=== PATIENT | female | born 2000 | race Asian ===

== ENCOUNTER 2021-12-31 14:42 | Emergency (ER) | payer OTHER, SELFPAY ==
--- NOTE | 2021-12-31 14:49 | ED.URI ---
HPI - URI/Sore Throat General Chief Complaint: Upper Respiratory Infection Stated Complaint: SINUS CONGESTION Time Seen by Provider: 12/31/21 14:52 Source: patient and RN notes reviewed Mode of arrival: ambulatory Limitations: no limitations History of Present Illness HPI Narrative: 21-year-old female presents with concern for one-week history of cough and chest congestion. She reports many week history of sinus congestion, pressure, thick green drainage. She reports she has taken antihistamines without relief, she has had a negative COVID test. MD elicited complaint: cough and nasal congestion Related Data Allergies Allergy/AdvReac Type Severity Reaction Status Date / Time No Known Allergies Allergy Unverified 12/31/21 14:47 Review of Systems Review of Systems: CONSTITUTIONAL: Reports malaise. Denies chills, sweats, or fever. EYES: Denies visual changes, redness, or discharge. ENT: Reports rhinorrhea, congestion, sinus pain. Denies otalgia and sore throat. CARDIOVASCULAR: Denies chest pain, palpitations, or edema. RESPIRATORY: Reports cough and chest congestion. Denies dyspnea. GASTROINTESTINAL: Denies abdominal pain, nausea, vomiting, diarrhea SKIN: Denies rash or itching. MUSCULOSKELETAL: Denies myalgia. NEUROLOGIC: Denies headache. All systems reviewed & are unremarkable except as noted in HPI and below PMFSH Comments At time of signature, agree with nursing past medical, surgical, social and family history. There is no relevant family history pertinent to the presenting complaint Exam Narrative: GENERAL: Well-appearing, well-nourished, and in no acute distress. HEAD: Normocephalic EYES: PERRLA, conjunctivae clear ENT: Nares clear, turbinates edematous and erythematous, clear discharge. Mucous membranes moist. TM pearly davies with dull light reflex bilaterally; no tragal tenderness. Oropharynx not erythematous without lesions. Tonsils not enlarged and without exudate, no drooling, no hoarseness, no trismus, uvula midline. NECK: Supple. No lymphadenopathy CHEST: Clear to auscultation, breath sounds equal. No wheezing, rhonchi, rales, or stridor. No respiratory distress, speaks in full sentences. HEART: Regular rate and rhythm. No murmur heard. SKIN: Warm, dry, no rash. NEURO: Alert and oriented x3. PSYCH: Normal mood and affect Course Course Emergency Course: Patient is aware of diagnosis, understands and agrees to treatment plan. Anticipatory guidance given. Patient agrees to follow-up as directed and is aware of reasons to seek care at the emergency department. Portions of this record may have been created with voice recognition software Level of Care: Express Care Visit Vital Signs Vital signs: Reviewed. MDM - URI/Sore Throat MDM Narrative Medical decision making narrative: Differential diagnosis considered: Evans virus, strep pharyngitis, allergic rhinitis, upper respiratory tract infection, sinusitis, rhinosinusitis, nasopharyngitis. viral pharyngitis, otitis media, otitis externa, pneumonia, bronchitis, viral cough syndrome, viral syndrome, and influenza. Exam findings show no acute concerns or changes; patient is non-toxic appearing and is in no distress. Patient is appropriate for outpatient treatment and follow-up. Lab Data Attestation: I reviewed the patient's lab results. Critical Care Time Critical Care Time Critical Care Time: No Discharge Plan Discharge Clinical Impression: Sinobronchitis Patient Disposition: Home, Self-Care Condition: Stable Instructions: Sinusitis (ED) Additional Instructions: Take medications as prescribed Recommend antihistamine such as Benadryl at night time and Zyrtec or Chelsey during the day Cough syrup may cause drowsiness; avoid driving or take it at night time. Also, recommend symptomatic treatment includes: rest, fluids, and increase humidity of the air at home. Recommend Acetaminophen as directed on the bottle to reduce fever, pain, headache.
[2021-12-31 14:53] VITALS: BP 123/80; PULSE 89; RESP 20; TEMP 36.7; O2SAT 100
== END 2021-12-31 15:06 | disposition home or self-care (01) ==
PROVIDERS: Emergency Provider Nurse Practitioner
DX: J32.9 Chronic sinusitis, unspecified (principal); J40 Bronchitis, not specified as acute or chronic
CPT/HCPCS: 99203; G0463

== ENCOUNTER 2022-07-30 14:18 | Emergency (ER) | payer OTHER, SELFPAY ==
--- NOTE | 2022-07-30 14:22 | ED.URI ---
HPI - URI/Sore Throat General Chief Complaint: Upper Respiratory Infection Stated Complaint: sore throat Time Seen by Provider: 07/30/22 14:34 Source: patient, RN notes reviewed and old records reviewed Mode of arrival: ambulatory Limitations: no limitations History of Present Illness HPI Narrative: 21-year-old female presents to the [facility] with complaints of a sore throat that has progressively getting worse over the last 2-3 days. states that she woke up today and the pain was much worse. Thought it was her allergies because she has been sleeping with the windows open. Denies fevers, chest pain, abdominal pain. Has taken [id number] allergy medication and Sudafed with no relief. Maintaining own secretions. Pain with swallowing but no other issue MD elicited complaint: sore throat Onset (ago): day(s) (2-3) Consistency: progressively worsening Able to tolerate fluids by mouth: Yes Relieving factors: nothing Treatments prior to arrival: cold medicine and other ( Allergy medication) Related Data Allergies Allergy/AdvReac Type Severity Reaction Status Date / Time No Known Allergies Allergy Unverified 12/31/21 14:47 Review of Systems Review of Systems: All systems reviewed & are unremarkable except as noted in HPI and below Constitutional: Constitutional: Reports no additional constitutional complaints Eyes: Eyes: Reports no additional eye complaints ENT: Reports as per HPI and Reports sore throat Cardiovascular: Cardiovascular: Reports no additional cardiovascular complaints, Denies chest pain and Denies dyspnea Respiratory: Respiratory: Reports no additional respiratory complaints, Denies chest congestion, Denies cough and Denies dyspnea Gastrointestinal: Gastrointestinal: Reports no additional gastrointestinal complaints, Denies abdominal pain, Denies nausea and Denies vomiting Musculoskeletal: Musculoskeletal: Reports no additional musculoskeletal complaints Integumentary/Breasts: Skin/Breast: Reports system reviewed and no additional complaints, except as docu Neurologic: Reports system reviewed and no additional complaints, except as documented Psychiatric: Psychiatric: Reports no additional psychiatric complaints Allergic/Immunologic: Allergic/Immunologic: Reports no additional allergic/immunologic complaints [facility] Social History Social History (Updated 07/30/22 @ 14:49 by Chanel Villafana APRN) Gender identity (if verbalized by the patient): Female Comments At the time of my signature, I reviewed and agree with the nursing past medical, surgical, social, and family history. There is no relevant family history pertinent to the patient complaint. Exam Const: General: cooperative, healthy appearing, comfortable, no acute distress, well developed, alert and well nourished Nutritional Appearance: well nourished Orientation/consciousness: patient oriented x3 Limitations: no limitations HENMT: Head: normal to inspection Ears: hearing grossly normal bilaterally, external ears normal, TM's normal bilaterally and EAC's normal Face/Nose/Sinus: Normal external nose present, Normal nares present, Normal nasal mucous membranes and turbinates present and normal facial exam Face and sinus: normal facial exam Mouth: Yes Normal oral and palatal mucosa present, Yes lip normal and Yes moist mucous membranes Throat: tonsils normal, uvula midline, posterior oropharynx abnormal erythema; no cobblstoning, no edema, no exudates and no lacerations, postnasal drainage and no uvular edema Eyes: General: appearance normal, both eyes and all related structures Alignment and Position: alignment normal Periorbital: periorbital findings normal Pupils: Equal, round and reactive pupils present EOM: EOMs intact bilaterally Neck: Neck: normal visual inspection, full ROM, no lymphadenopathy and no meningeal signs Chest: Chest palpation & inspection: normal inspection of the chest Resp: Effort & Inspection: normal
[2022-07-30 14:25] VITALS: BP 118/83; PULSE 91; RESP 16; TEMP 36.3; O2SAT 100
== END 2022-07-30 14:43 | disposition home or self-care (01) ==
PROVIDERS: Emergency Provider Nurse Practitioner
DX: J02.0 Streptococcal pharyngitis (principal)
CPT/HCPCS: 87880; 99213; G0463

== ENCOUNTER 2022-12-24 11:13 | Emergency (ER) | payer OTHER, SELFPAY ==
[2022-12-24 11:23] VITALS: BP 116/89; PULSE 82; RESP 16; TEMP 36.4; O2SAT 100
--- NOTE | 2022-12-24 11:40 | ED.URI ---
HPI - URI/Sore Throat General Chief Complaint: Upper Respiratory Infection Stated Complaint: STREP THROAT Source: patient and RN notes reviewed History of Present Illness HPI Narrative: 22 yo F presents to urgent care with complaints of an increased sore throat. Pt was seen at [facility] care on 12/22/22 and dx with strep throat. Pt has been taking 2 days of amoxicillin with no improvement and states her throat looks worse and her pain is getting worse. Pt reports chills at home and a fever of 102 F last night. Denies any other complaints. Pt has been taking ibuprofen and Tylenol at home. Related Data Allergies Allergy/AdvReac Type Severity Reaction Status Date / Time No Known Allergies Allergy Verified 12/24/22 11:32 Review of Systems Review of Systems: CONSTITUTIONAL: fevers and chills EYES: Denies visual changes, redness, or discharge. ENT: sore throat CARDIOVASCULAR: Denies chest pain, palpitations, or edema. RESPIRATORY: Denies cough or dyspnea. GASTROINTESTINAL: Denies abdominal pain, nausea, vomiting, or diarrhea. GENITOURINARY: Denies dysuria or hematuria. SKIN: Denies rash or itching. MUSCULOSKELETAL: Denies back pain, joint pain, or myalgia. NEUROLOGIC: Denies headache, numbness, or weakness. Pertinent positives per HPI. [facility], [facility] Social History Social History (Updated 07/30/22 @ 14:49 by Chanel Villafana APRN) Gender identity (if verbalized by the patient): Female Comments At the time of my signature, I reviewed and agree with the nursing past medical, surgical, social, and family history. There is no relevant family history pertinent to the patient complaint. Exam Narrative: GENERAL: This is a well-nourished, well-developed patient, in no apparent distress. HEAD: normocephalic, atraumatic. EYES: Sclera clear/white. Vision is grossly intact. EARS: External ears normal, auditory canals clear and without drainage. Hearing grossly intact. NOSE: External nose normal with no obvious nasal discharge, nares without redness, no rhinorrhea. THROAT: Mucous membranes moist, posterior pharynx erythremic with white lesions to posterior pharynx and bilateral tonsils. Tonsils are 2+ bilaterally. NECK: Neck supple, non-tender without lymphadenopathy, masses or thyromegaly. CARDIOVASCULAR: Regular rate and rhythm without murmurs, gallops, or rubs. RESPIRATORY: Clear to auscultation. Breath sounds equal bilaterally. No wheezes, rales, or rhonchi. GASTROINTESTINAL: Abdomen soft, non-tender, nondistended. Bowel sounds are active. No hepato-splenomegaly, or palpable masses. No guarding. SKIN: warm, intact with no suspicious lesions or rash, good texture and turgor. NEURO: awake, alert, and oriented to person, place and time. There were no obvious focal neurologic abnormalities. Course Course Level of Care: Express Care Visit Vital Signs Vital signs: Vital Signs Temperature 97.6 F 12/24/22 11:23 Pulse Rate 82 12/24/22 11:23 Respiratory Rate 16 12/24/22 11:23 Blood Pressure 116/89 12/24/22 11:23 Pulse Oximetry 100 12/24/22 11:23 Temperature 97.6 F 12/24/22 11:23 Pulse Rate 82 12/24/22 11:23 Respiratory Rate 16 12/24/22 11:23 Blood Pressure 116/89 12/24/22 11:23 Pulse Oximetry 100 12/24/22 11:23 reviewed MDM - URI/Sore Throat MDM Narrative Medical decision making narrative: We swabbed your throat for a specific virus. If your results come back and it is positive, we will call you and prescribe you a new medication. In the meantime, finish the Amoxicillin/clav prescription. Get plenty of fluids and vitamin C. If your symptoms worsen, go to the ER. Differential Diagnosis Differential diagnosis: Likely upper respiratory infection, viral infection and pharyngitis Critical Care Time Critical Care Time Critical Care Time: No Discharge Plan Discharge Clinical Impression: Pharyngitis Qualifiers: Pharyngitis/tonsillitis etiology: streptococcus Qualified Code
== END 2022-12-24 11:50 | disposition home or self-care (01) ==
PROVIDERS: Emergency Provider Nurse Practitioner Family
DX: J02.0 Streptococcal pharyngitis (principal)
CPT/HCPCS: 87255; 99213; G0463

== ENCOUNTER 2023-07-13 13:42 | Outpatient (CLI) | payer OTHER, SELFPAY ==
[2023-07-13 18:11] LABS: Hemoglobin 14.2 g/dL (12.0-15.0); Mean Corpuscular Hemoglobin 28.3 pg (26-34); Mean Corpuscular Volume 85.7 fl (80-100); Mean Platelet Volume 9.9 fl (7.4-10.4); Platelet Count Result 350 k/mm3 (150-375); Red Blood Count 5.02 M/mm3 (4.2-5.4); Red Cell Distribution Width 12.7 % (11.5-14.5); White Blood Count 6.2 K/mm3 (4.5-10.0)
[2023-07-13 18:46] LABS: Alanine Aminotransferase 15 U/L (6-35); Albumin Level 4.4 g/dL (3.5-5.1); Alkaline Phosphatase 61 U/L (38-126); Anion Gap 8 mmol/L (4-12); Aspartate Amino Transferase 33 U/L (14-36); Bilirubin,Total 0.6 mg/dL (0.2-1.3); Blood Urea Nitrogen 14 mg/dL (7-17); Carbon Dioxide 27 mmol/L (22-30); Chloride 105 mmol/L (98-107); Cholesterol 148 mg/dL (0-200); Estimated Glomerular Filt Rate > 60; Glucose 93 mg/dL (65-110); HDL Direct 33 mg/dL; Potassium 4.2 mmol/L (3.4-5.0); Sodium 140 mmol/L (137-145); Triglycerides 191 mg/dL (<150)
[2023-07-13 18:57] LABS: LDL Cholesterol Direct 93 mg/dL
== END 2023-07-13 13:43 | disposition home or self-care (01) ==
LOC: ANHGOSHLAB 13:43
PROVIDERS: PCP Family Medicine; Visit Provider Family Medicine
DX: E66.9 Obesity, unspecified (principal); Z79.899 Other long term (current) drug therapy; T78.40XA Allergy, unspecified, initial encounter
CPT/HCPCS: 36415; 80053; 80061; 84443; 85027

== ENCOUNTER 2023-09-28 08:19 | Outpatient (CLI) | payer OTHER, SELFPAY ==
[2023-09-28 12:56] LABS: Basophils Percent Auto 0.4 % (0.2-1.2); Eosinophils Percent Auto 0.6 % (0-4.4); Hematocrit 43.6 % (37.0-47.0); Hemoglobin 14.2 g/dL (12.0-15.0); Immature Granulocyte Absolute 0.02 K/mm3 (0.00-0.031); Immature Granulocyte Percent A 0.4 % (0-0.5); Lymphocytes Absolute Auto 1.76 K/mm3 (0.9-3.2); Lymphocytes Percent Auto 34.9 % (18.3-44.2); Mean Corpuscular HGB Conc 32.6 g/dl (32-36); Mean Corpuscular Hemoglobin 27.7 pg (26-34); Mean Platelet Volume 9.8 fl (7.4-10.4); Monocytes Absolute Auto 0.5 K/mm3 (0.1-0.6); Monocytes Percent Auto 9.5 % (2.6-8.5); Neutrophils Absolute Auto 2.7 K/mm3 (1.3-6.7); Neutrophils Percent Auto 54.2 % (45.5-73.1); Platelet Count Result 314 k/mm3 (150-375); Red Blood Count 5.13 M/mm3 (4.2-5.4); Red Cell Distribution Width 12.2 % (11.5-14.5)
[2023-09-28 13:14] LABS: Alanine Aminotransferase 48 U/L (6-35); Albumin Level 4.8 g/dL (3.5-5.1); Alkaline Phosphatase 69 U/L (38-126); Anion Gap 11 mmol/L (4-12); Aspartate Amino Transferase 90 U/L (14-36); Bilirubin,Total 0.9 mg/dL (0.2-1.3); Blood Urea Nitrogen 12 mg/dL (7-17); Calcium 9.4 mg/dL (8.4-10.2); Carbon Dioxide 25 mmol/L (22-30); Chloride 102 mmol/L (98-107); Estimated Glomerular Filt Rate > 60; Glucose 101 mg/dL (65-110); Potassium 3.8 mmol/L (3.4-5.0); Sodium 138 mmol/L (137-145)
[2023-09-28 14:30] LABS: Iron 105 ug/dL (37-170)
[2023-09-28 14:42] LABS: Percent Iron Saturation 25 % (20-50)
[2023-09-30 08:39] LABS: DHEA-Sulfate 246 mcg/dL (14-349); FSH 5.8 mIU/mL; Prolactin 14.6 ng/mL
[2023-10-04 09:52] LABS: Testosterone Free 4.7 pg/mL (0.1-6.4); Testosterone Total 20 ng/dL (2-45)
[2023-10-09 23:34] LABS: Estradiol, Ultrasensitive 18 pg/mL
== END 2023-09-28 08:20 | disposition home or self-care (01) ==
LOC: ANHGOSHLAB 08:20
PROVIDERS: PCP Family Medicine; Visit Provider Obstetrics & Gynecology
DX: N93.9 Abnormal uterine and vaginal bleeding, unspecified (principal)
CPT/HCPCS: 36415; 80053; 82627; 82670; 82728; 83001; 83498; 83540; 83550; 84146; 84402; 84403; 84443; 85025

== ENCOUNTER 2024-06-23 18:33 | Emergency (ER) | payer OTHER, SELFPAY ==
--- OUTSIDE RECORDS SUMMARY | 2024-06-23 18:37 | XMS_ITS | Clinical Summary ---
Author Organization [facility] [employer] Address [address] [place] [address] Care Team Providers Care Property Clerk Name Role Phone Camron León MD Primary Care Provider [phone] Source Comments [employer],non-owned Affiliates and Associated Physician Practices is amultiple site organization consisting of ambulatory clinics and hospital sitesin [place], [place], [place] and [place]. This disclosure is being madepursuant to the Care Everywhere program and may not contain all information available regarding this patient. Last updated 17.BO.LT Allergies No known active allergies Medications * Be aware that medications may not be up to date on this document. Alwaysverify current medications with the patient. No known medications Social History Tobacco Use Types Packs/Day Years Used Date Smoking Tobacco: Never Comments Unknown Sex and Gender Information Value Date Recorded Sex Assigned at Not on file Legal Sex Female 11:59 AM CLINICAL IMPLEMENTATION SPECIALIST Gender Identity Not on file Sexual Orientation Not on file Last Filed Vital Signs Vital Sign Reading Time Taken Comments Blood Pressure 112/72 11/04/2018 10:01 AM CDT Pulse 74 11/04/2018 10:01 AM CDT Temperature 37 C (98.6 F) 11/04/2018 10:01 AM CDT Respiratory Rate 16 03/16/2016 2:44 PM CLINICAL IMPLEMENTATION SPECIALIST Oxygen Saturation 99% 03/16/2016 2:44 PM CLINICAL IMPLEMENTATION SPECIALIST Inhaled Oxygen Concentration - - Weight 84.8 kg (187 lb) 11/04/2018 10:01 AM CDT Height 161.9 cm (5' 3.75 ) 03/16/2016 2:44 PM CS T Body Mass Index - - Plan of Treatment Health Maintenance Due Date Last Done Comments HIV SCREENING 11/15/2015 HPV VACCINE (1 - 3-dose series) 11/15/2015 CHLAMYDIA/GONORRHEA SCREENING 2016 MENINGOCOCCAL (Group B) VACC INE SHARED DECISION-MAKING (1 of 2 - Standard) 2016 HEPATITIS C SCREENING 11/10/2018 DTAP/TDAP/TD VACCINES (1 - Tdap) 11/15/2019 HEPATITIS B VACCINE (1 of 3 - 19+ 3-dose series) 11/15/2019 COVID-19 VACCINE (1 - 2023-2 5 season) 2023 DEPRESSION SCREENING 02/21/2024 INFLUENZA VACCINE (Season Ended) 2024 ZOSTER VACCINE (1 of 2) 2050 HIB VACCINE Aged Out No longer eligi ble based on patient's age to complete this topic MENINGOCOCCAL GROUPS A/C/Y/W VACCINE Aged Out No longer eligible b ased on patient's age to complete this topic PNEUMOCOCCAL VACCINE Aged Out No long er eligible based on patient's age to complete this topic Insurance [facility] Care Teams Property Clerk Relationship Specialty Start Date End Date Camron León MD [address] [place] [id number] PCP - General Family Medicine 03/16/16
--- OUTSIDE RECORDS SUMMARY | 2024-06-23 18:37 | XMS_ITS | Referral Summary ---
Author Organization [facility] [address] [facility] Address [address] [place] [address] Care Team Providers Care Baseball Glove Shaper Name Role Phone No, Physician Primary Care Provider [phone] Allergies No known active allergies Medications No known medications Active Problems No known active problems Social History Tobacco Use Types Packs/Day Years Used Date Smoking Tobacco: Never Assessed Personal Safety Answer Date Recorded Getting School Help Needed Not on file 04/23 Comments Unknown Sex and Gender Information Value Date Recorded Sex Assigned at Not on file Legal Sex Female 11:49 AM CDT Gender Identity Not on file Sexual Orientation Not on file Last Filed Vital Signs Vital Sign Reading Time Taken Comments Blood Pressure 110/68 12/22/2022 12:09 PM CDT Pulse 89 12/22/2022 12:09 PM CDT Temperature 37.9 C (100.2 F) 12/22/2022 12:09 PM CDT Respiratory Rate 20 12/22/2022 12:09 PM CDT Oxygen Saturation 98% 12/22/2022 12:09 PM CDT Inhaled Oxygen Concentration - - Weight 74.8 kg (165 lb) 12/22/2022 12:09 PM CDT Height 162.6 cm (5' 4 ) 12/22/2022 12:09 PM CDT Body Mass Index 28.32 12/22/2022 12:09 PM CDT Plan of Treatment Not on file Insurance [employer] [facility] HMO Care Teams Baseball Glove Shaper Relationship Specialty Start Date End Date No, Physician PCP - General 12/22/22
--- OUTSIDE RECORDS SUMMARY | 2024-06-23 18:37 | XMS_ITS | Clinical Summary ---
Author Organization [facility] [place] [address] [facility] Address [address] [place] [address] Care Team Providers Care Missile Tracking Technician Name Role Phone No, Physician Primary Care Provider [phone] Allergies No known active allergies Medications No [...] 12/22/2022 12:09 PM CDT Plan of Treatment Health Maintenance Due Date Last Done Comments Cervical Cancer Screening 2000 Depression Screening 2000 Hepatitis C Screening 2000 HPV Vaccines (1 - 3-dose series) 11/15/2015 Meningococcal B Vaccine (1 of 2 - Standard) 2016 Regular Well Visit/Exam 18-64 2018 Covid-19 Vaccine ( season) 2023 11/25/2020, 05/09/2020, 04/18/2020 Influenza Vaccine (#1) 2023 12/07/2019 DTaP/Tdap/Td Vaccine (7 - Td or Tdap) 03/12/2028 03/12/2018, 10/11/2006, 08/09/2002, Additional history exists Varicella Vaccines Completed 11/05/2015, 11/30/2001 Hepatitis B Screening Completed 06/28/2022 , 05/10/2002, 11/30/2001, Additional history exists Pneumococcal vaccine <65 Aged Out No longer eligible based on patient's age to complete this topic [place] [address] [address] [place] [address] HMO Care Teams Missile Tracking Technician Relationship Specialty Start Date End Date No, Physician PCP - General 12/22/22
[2024-06-23 18:38] VITALS: BP 128/85; PULSE 87; RESP 15; TEMP 36.8; O2SAT 100
--- NOTE | 2024-06-23 19:02 | ED_ITS ---
HPI - General Adult General Chief complaint: Skin/Abscess/Foreign Body Stated complaint: skin concern on back Time Seen by Provider: 06/23/24 18:48 History of Present Illness HPI narrative: Patient is a 23-year-old female who presents ER with rash to the mid/low back. Her significant other recognized it yesterday. It is pattern in a circular in linear manner the banding out in each direction. It is not dermatomal. No pruritus. No drainage. No fevers or chills or sweats. No known trauma to the area or possible cause of irritation. Related Data Home Medications ?Medication ?Instructions ?Recorded ?Confirmed ?Last Taken ?Type levonorgestrel (Mirena) 1 device intrauterine ONCE 10/25/23 11/01/23 Unknown History Allergies Allergy/AdvReac Type Severity Reaction Status Date / Time No Known Allergies Allergy Verified 06/23/24 18:41 Review of Systems Review of Systems: All systems reviewed & are unremarkable except as noted in HPI and below Constitutional: Constitutional: Reports no additional constitutional complaints Cardiovascular: Cardiovascular: Reports no additional cardiovascular complaints Respiratory: Respiratory: Reports no additional respiratory complaints Integumentary/Breasts: Skin/Breast: Reports system reviewed and no additional complaints, except as docu Neurologic: Reports system reviewed and no additional complaints, except as documented [facility] [place] Surgical History Surgical History (Updated 11/01/23 @ 09:27 by Nathalia Matamoros MA) H/O gynecological procedure 02/2020 Nexplanon insertion 11/01/23 Nexplanon removal 10/25/23 Mirena IUD insertion [place] teeth extracted Social History Social History (Updated 09/21/23 @ 14:28 by Nathalia Matamoros MA) Smoking status: Current every day smoker Tobacco type: e-cigarettes/vaping Alcohol intake: current Alcohol use details: rarely Substance use: current Substance use type: marijuana Other substance usage details: socially Do You Feel Safe in your Home?: Yes Lack of Transportation: No Lack of Food: Never True Current Housing: I Have Housing Concerned About Future Housing: No Difficulty Paying Gas/Electric Bills: No Difficulty Paying for Meds: No Currently Unemployed: No Education: High School Diploma/GED Difficulty w/ Childcare or Family Care: No Living arrangements: with friend(s) Occupation/Education: occupation 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 HEAD: Normocephalic, atraumatic. ENT: Mucous membranes moist. NECK: Supple. Achy left neck. EXTREMITIES: Normal range of motion. No edema. SKIN: Warm, dry. None blanching rash mid/low back midline fanning out words laterally. No vesicles or pustules. It is not raised. No cellulitis. Circular but also linear at the same time. NEURO: No focal deficits. Alert and oriented x3. PSYCH: Normal mood and affect. Course Course Emergency Course: Not felt to be infectious. Likely related to some pressure/trauma that she is unaware of. Vital Signs Vital signs: Vital Signs Temperature 98.3 F 06/23/24 18:38 Pulse Rate 87 06/23/24 18:38 Respiratory Rate 15 06/23/24 18:38 Blood Pressure 128/85 06/23/24 18:38 Pulse Oximetry 100 06/23/24 18:38 Oxygen Delivery Room Air 06/23/24 18:38 Temperature 98.3 F 06/23/24 18:38 Pulse Rate 87 06/23/24 18:38 Respiratory Rate 15 06/23/24 18:38 Blood Pressure 128/85 06/23/24 18:38 Pulse Oximetry 100 06/23/24 18:38 Oxygen Delivery Room Air 06/23/24 18:38 Medical Decision Making Vital Signs Vital Signs: Vital Signs Temperature 98.3 F 06/23/24 18:38 Pulse Rate 87 06/23/24 18:38 Respiratory Rate 15 06/23/24 18:38 Blood Pressure 128/85 06/23/24 18:38 Pulse Oximetry 100 06/23/24 18:38 Oxygen Delivery Room Air 06/23/24 18:38 Temperature 98.3 F 06/23/24 18:38 Pulse Rate 87 06/23/24 18:38 Respiratory Rate 15 06/23/24 18:38 Blood Pressure 128/85 06/23/24 18:38 Pulse Oximetry 100 06/23/24 18:38 Oxygen Delivery Room Air 06/23/24 18:38 Discharge Plan Discharge Clinical Impression: Rash and nonspecific skin eruption Patient Disposition: Home Condition: Stable Instructions: Acute Rash (ED) Additional Instructions: Your skin rashes felt likely to be some sort pressure injury causing superficial bruising. It does not appear infectious. Return to the ER if you have additional concerns. Patient Language: Yi Prescriptions: No Action Mirena 21 mcg/24 hr (8 yrs) 52 mg intrauterine device 1 device intrauterine ONCE Rx Instructions: as a single dose Follow-up/Referrals: Dora Blanchard DO [Primary Care Provider] - 1 Week
--- OUTSIDE RECORDS SUMMARY | 2024-06-23 19:03 | XMS_ITS | Referral Summary ---
Author Organization [facility] [address] [facility] Address [address] [place] [address] Care Team Providers Care Chronometer Repairer Name Role Phone No, Physician Primary Care Provider [phone] Allergies No known active allergies Medications No [...] of Treatment Not on file Insurance [employer] [facility] HMO Care Teams Chronometer Repairer Relationship Specialty Start Date End Date No, Physician PCP - General 12/22/22
--- OUTSIDE RECORDS SUMMARY | 2024-06-23 19:03 | XMS_ITS | Clinical Summary ---
Author Organization [facility] Address [address] [place] [address] Care Team Providers Care Honey Processor Name Role Phone Camron León MD Primary Care Provider [phone] Source Comments [employer] [facility],non-owned Affiliates and Associated Physician Practices is amultiple site organization consisting of ambulatory clinics and hospital sitesin [place], [place], [place] and [place]. This disclosure is being madepursuant to the Care Everywhere program and may not contain all information available regarding this patient. Last updated [email or web address] Allergies No known active allergies Medications * Be aware that medications may not be up to date on this document. Alwaysverify current medications with the patient. No known medications Social History Tobacco Use Types Packs/Day Years Used Date Smoking Tobacco: Never Comments Unknown Sex and Gender Information Value Date Recorded Sex Assigned at Not on file Legal Sex Female 11:59 AM CLAM DIGGER Gender Identity Not on file Sexual Orientation Not on file Last Filed Vital Signs Vital Sign Reading Time Taken Comments Blood Pressure 112/72 11/04/2018 10:01 AM CDT Pulse 74 11/04/2018 10:01 AM CDT Temperature 37 C (98.6 F) 11/04/2018 10:01 AM CDT Respiratory Rate 16 03/16/2016 2:44 PM CLAM DIGGER Oxygen Saturation 99% 03/16/2016 2:44 PM CLAM DIGGER Inhaled Oxygen Concentration - - Weight 84.8 [...] patient's age to complete this topic Insurance [facility] [place] [address] Care Teams Honey Processor Relationship Specialty Start Date End Date Camron León MD [address] [place] [address] PCP - General Family Medicine 03/16/16
--- OUTSIDE RECORDS SUMMARY | 2024-06-23 19:03 | XMS_ITS | Clinical Summary ---
Author Organization [facility] [address] [facility] Address [address] [place] [address] Care Team Providers Care Agriculture Extension Specialist Name Role Phone No, Physician Primary Care Provider [phone] Allergies No known active allergies Medications No [...] patient's age to complete this topic [place] [place] [address] HMO Care Teams Agriculture Extension Specialist Relationship Specialty Start Date End Date No, Physician PCP - General 12/22/22
== END 2024-06-23 19:20 | disposition home or self-care (01) ==
PROVIDERS: Emergency Provider Emergency Medicine; PCP Family Medicine
DX: R21 Rash and other nonspecific skin eruption (principal); F17.290 Nicotine dependence, other tobacco product, uncomplicated; F12.90 Cannabis use, unspecified, uncomplicated
CPT/HCPCS: 99281

== ENCOUNTER 2024-08-25 19:08 | Emergency (ER) | payer OTHER, SELFPAY ==
[2024-08-25 19:15] VITALS: BP 121/79; PULSE 76; RESP 16; TEMP 36.1; O2SAT 100
--- NOTE | 2024-08-25 19:16 | ED_ITS ---
HPI - Female Genitourinary General Chief complaint: Urogenital-Female Stated complaint: Uti Symptoms Time Seen by Provider: 08/25/24 19:17 Source: patient and RN notes reviewed Mode of arrival: ambulatory Limitations: no limitations History of Present Illness HPI Narrative: 23 y/o female presented for c/o burning with urination and frequency x 4 days. Today she had right lower back pain, which is now resolved after taking Tylenol. Pt took Azo at onset, and says symptoms improved but returned when she stopped it after 2 days. Pt also reports constipation. Denies hematuria, nausea, vomiting, abdominal pain, flank pain, diarrhea, fevers or chills. Denies concern for std or . Related Data Home Medications ?Medication ?Instructions ?Recorded ?Confirmed ?Last Taken ?Type levonorgestrel (Mirena) 1 device intrauterine ONCE 10/25/23 11/01/23 Unknown History Allergies Allergy/AdvReac Type Severity Reaction Status Date / Time No Known Allergies Allergy Verified 08/25/24 19:17 Review of Systems Review of Systems: CONSTITUTIONAL: Denies body aches, fever, chills, or sweats. CARDIOVASCULAR: Denies chest pain, palpitations, or edema. RESPIRATORY: Denies cough or dyspnea. GASTROINTESTINAL: Denies abdominal pain, nausea, vomiting, or diarrhea. GENITOURINARY: Reports dysuria, frequency, urgency, flank pain, denies hematuria, discharge SKIN: Denies rash, itching, or wounds. MUSCULOSKELETAL: Denies back pain or myalgia. [facility] Surgical History Surgical History (Updated 11/01/23 @ 09:27 by Nathalia Matamoros MA) H/O gynecological procedure 02/2020 Nexplanon insertion 11/01/23 Nexplanon removal 10/25/23 Mirena IUD insertion [place] teeth extracted Social History Social History (Updated 09/21/23 @ 14:28 by Nathalia Matamoros MA) Smoking status: Current every day smoker Tobacco type: e-cigarettes/vaping Alcohol intake: current Alcohol use details: rarely Substance use: current Substance use type: marijuana Other substance usage details: socially Do You Feel Safe in your Home?: Yes Lack of Transportation: No Lack of Food: Never True Current Housing: I Have Housing Concerned About Future Housing: No Difficulty Paying Gas/Electric Bills: No Difficulty Paying for Meds: No Currently Unemployed: No Education: High School Diploma/GED Difficulty w/ Childcare or Family Care: No Living arrangements: with friend(s) Occupation/Education: occupation 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 Please see nursing chart for further information. There is no relevant family history pertinent to the presenting complaint Exam Narrative: GENERAL: Well-appearing and in no acute distress. ENT: Mucous membranes pink and moist. NECK: Normal AROM. Supple. CHEST: No respiratory distress. Clear to auscultation. HEART: Regular rate and rhythm. ABDOMEN: Soft, nontender, nondistended, normal active bowel sounds. No CVA tenderness SKIN: Warm, dry, no rash. NEURO: No focal deficits. Alert and oriented x3. Gait steady. PSYCH: Normal affect. Course Course Emergency Course: Patient is aware of diagnosis, understands and agrees to treatment plan. Anticipatory guidance given. Patient agrees to follow-up as directed and is aware of reasons to seek care at the emergency department. Portions of this record may have been created with voice recognition software Level of Care: Express Care Visit Vital Signs Vital signs: Vital Signs Temperature 97 F L 08/25/24 19:15 Pulse Rate 76 08/25/24 19:15 Respiratory Rate 16 08/25/24 19:15 Blood Pressure 121/79 08/25/24 19:15 Pulse Oximetry 100 08/25/24 19:15 Temperature 97 F L 08/25/24 19:15 Pulse Rate 76 08/25/24 19:15 Respiratory Rate 16 08/25/24 19:15 Blood Pressure 121/79 08/25/24 19:15 Pulse Oximetry 100 08/25/24 19:15 Reviewed MDM - Female Genitourinary MDM Narrative Medical decision making narrative: Discussed physical exam findings and urine dip. will culture. Advised supportive measures and signs/symptoms to go to the ER. Pt is appropriate for outpt treatment and f/u. Differential Diagnosis Differential diagnosis: Likely urinary tract infection, vaginitis and cystitis Discharge Plan Discharge Clinical Impression: Urinary tract infection Patient Disposition: Home Condition: Stable Instructions: Antibiotic Form, Urinary Tract Infection in Women (ED) Additional Instructions: Take the antibiotic as prescribed The urine will be sent of for a culture to identify what type of bacteria is causing your infection. If the culture shows that the antibiotic will not get rid of your infection, you will be notified and a new antibiotic will be called in for you. Increase water intake you will need to follow up with your PCP, call to schedule an appointment. Go to the ER for any worsening symptoms or concerns Patient Language: Bulgarian Prescriptions: New sulfamethoxazole-trimethoprim [Bactrim DS] 800-160 mg tablet 1 tablet PO Q12H 5 Days Qty: 10 0RF No Action Mirena 21 mcg/24 hr (8 yrs) 52 mg intrauterine device 1 device intrauterine ONCE Rx Instructions: as a single dose Follow-up/Referrals: Dora Blanchard DO [Primary Care Provider] - Time of Disposition: 19:31
[2024-08-25 19:22] LABS: EDUAAPPEAR Cloudy; EDUABILI Negative (Negative); EDUABLOOD 2+ (Negative); EDUACOLOR1 Yellow; EDUAGLUCOSE Negative (Negative); EDUAKETONE Negative (Negative); EDUALEUKO 2+ (Negative); EDUANITRATE Negative (Negative); EDUAPH 7.0; EDUAPROTEIN Trace (Negative); EDUASPGRAVITY 1.020; EDUAUROBILI 0.2
== END 2024-08-25 19:32 | disposition home or self-care (01) ==
PROVIDERS: Emergency Provider Nurse Practitioner Family; PCP Family Medicine
DX: N39.0 Urinary tract infection, site not specified (principal); F17.290 Nicotine dependence, other tobacco product, uncomplicated; F12.90 Cannabis use, unspecified, uncomplicated
CPT/HCPCS: 81003; 87086; 99213; G0463

== ENCOUNTER 2024-09-05 20:23 | Emergency (ER) | payer OTHER, SELFPAY ==
--- OUTSIDE RECORDS SUMMARY | 2024-09-05 20:26 | XMS_ITS | Clinical Summary ---
Author Organization [facility] [place] [address] [facility] Address [address] [place] [address] Care Team Providers Care Laundry Operator Finishing Name Role Phone No, Physician Primary Care Provider [phone] Allergies No known active allergies Medications No [...] 12:09 PM CDT Height 162.6 cm (5' 4) 12/22/2022 12:09 PM CDT Body Mass Index [...] season) 2023 11/25/2020, 05/09/2020, 04/18/2020 Influenza Vaccine (Season Ended) 2024 12/07/2019 DTaP/Tdap/Td Vaccine (7 - Td or Tdap) 03/12/2028 03/12/2018, 10/11/2006, 08/09/2002, Additional history exists Varicella Vaccines Completed 11/05/2015, 11/30/2001 Hepatitis B Screening Completed 06/28/2022 , 05/10/2002, 11/30/2001, Additional history exists Pneumococcal vaccine <65 Aged Out No longer eligible based on patient's age to complete this topic Insurance [facility] HMO Care Teams Laundry Operator Finishing Relationship Specialty Start Date End Date No, Physician PCP - General 12/22/22
--- OUTSIDE RECORDS SUMMARY | 2024-09-05 20:26 | XMS_ITS | Clinical Summary ---
Author Organization [facility] Address [address] [place] [address] Care Team Providers Care Rag Shredder Name Role Phone Camron León MD Primary Care Provider [phone] Source Comments [employer] [facility],non-owned Affiliates and Associated Physician Practices is amultiple site organization consisting of ambulatory clinics and hospital sitesin [place], [place], [place] and [place]. This disclosure is being madepursuant to the Care Everywhere program and may not contain all information available regarding this patient. Last updated 17[employer] Allergies No known active allergies Medications * Be aware that medications may not be up to date on this document. Alwaysverify current medications with the patient. 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 Gender Identity Not on file Sexual Orientation Not on file Last Filed Vital Signs Vital Sign Reading Time Taken Comments Blood Pressure 112/72 11/04/2018 10:01 AM CDT Pulse 74 11/04/2018 10:01 AM CDT Temperature 37 C (98.6 F) 11/04/2018 10:01 AM CDT Respiratory Rate 16 03/16/2016 2:44 PM COIL WINDING MACHINES SET UP MECHANIC Oxygen Saturation 99% 03/16/2016 2:44 PM COIL WINDING MACHINES SET UP MECHANIC Inhaled Oxygen Concentration - - Weight 84.8 kg (187 lb) 11/04/2018 10:01 AM CDT Height 161.9 cm (5' 3.75) 03/16/2016 2:44 PM CS T Body Mass [...] season) 2023 DEPRESSION SCREENING 02/21/2024 INFLUENZA VACCINE (#1) 2024 ZOSTER VACCINE (1 of 2) 2050 HIB VACCINE Aged Out No longer eligi ble based on patient's age to complete this topic MENINGOCOCCAL GROUPS A/C/Y/W VACCINE Aged Out No longer eligible b ased on patient's age to complete this topic PNEUMOCOCCAL VACCINE Aged Out No long er eligible based on patient's age to complete this topic Insurance [facility] Care Teams Rag Shredder Relationship Specialty Start Date End Date Camron León MD [address] [place] [address] PCP - General Family Medicine 03/16/16
--- OUTSIDE RECORDS SUMMARY | 2024-09-05 20:26 | XMS_ITS | Referral Summary ---
Author Organization [facility] [place] [address] [facility] Address [address] [place] [address] Care Team Providers Care Life Enrichment Specialist Name Role Phone No, Physician Primary Care Provider [phone] Allergies No known active allergies Medications No [...] of Treatment Not on file Insurance [employer] [facility] HMO Care Teams Life Enrichment Specialist Relationship Specialty Start Date End Date No, Physician PCP - General 12/22/22
[2024-09-05 20:37] VITALS: BP 141/87; PULSE 79; RESP 14; TEMP 36.4; O2SAT 100
--- NOTE | 2024-09-05 21:36 | PC.NURSE ---
Pt is ambulatory to intake desk with steady gait and states she is going to go home and go to urgent care tomorrow morning. Pt advised to stay but pt states she does not want to wait hours and rather go home. Pt advised to come back in if anything worsens. pt left without being seen by provider.
[2024-09-05 21:38] LABS: Add Urine Microscopic? YES; Appearance Urine Clear (Clear); Glucose Urine UA Negative (Negative); Leukocyte Esterase Ur Trace LEU/UL (Negative); Nitrate Urine Negative (Negative); Non Pathogenic Casts 0-2; Specific Grav Ur 1.006 (1.001-1.035)
--- OUTSIDE RECORDS SUMMARY | 2024-09-05 21:46 | XMS_ITS | Clinical Summary ---
Author Organization [facility] Address [address] [place] [address] Care Team Providers Care Hospital Television Rental Clerk Name Role Phone Camron León MD Primary Care Provider [phone] Source Comments [employer] [facility],non-owned Affiliates and Associated Physician Practices is amultiple site organization consisting of ambulatory clinics and hospital sitesin [place], [place], [place] and [place]. This disclosure is being madepursuant to the Care Everywhere program and may not contain all information available regarding this patient. Last updated 17.[employer] Allergies No known active allergies Medications * Be aware that medications may not be up to date on this document. Alwaysverify current medications with the patient. No known medications Social History Tobacco Use Types Packs/Day Years Used Date Smoking Tobacco: Never Comments Unknown Sex and Gender Information Value Date Recorded Sex Assigned at Not on file Legal Sex Female 11:59 AM SANITATION SUPERVISOR Gender Identity Not on file Sexual Orientation Not on file Last Filed Vital Signs Vital Sign Reading Time Taken Comments Blood Pressure 112/72 11/04/2018 10:01 AM CDT Pulse 74 11/04/2018 10:01 AM CDT Temperature 37 C (98.6 F) 11/04/2018 10:01 AM CDT Respiratory Rate 16 03/16/2016 2:44 PM SANITATION SUPERVISOR Oxygen Saturation 99% 03/16/2016 2:44 PM SANITATION SUPERVISOR Inhaled Oxygen Concentration - - Weight 84.8 [...] patient's age to complete this topic Insurance [facility] Care Teams Hospital Television Rental Clerk Relationship Specialty Start Date End Date Camron León MD [address] [place] [address] PCP - General Family Medicine 03/16/16
== END 2024-09-05 21:36 | disposition left against medical advice (07) ==
PROVIDERS: Emergency Provider Student in an Organized Health Care Education/Training Program; PCP Family Medicine
DX: N39.0 Urinary tract infection, site not specified (principal)
CPT/HCPCS: 81001; 99199